=== PATIENT | male | born 1965 | race Caucasian/White ===

== ENCOUNTER 2021-04-08 13:12 | Day surgery (SDC) | payer BC ==
[2021-04-08] MEDS ORDERED: PROPOFOL 200 MG/20 ML VIAL IVP ONE (13:21)
[2021-04-08] MEDS ORDERED: PROPOFOL 500 MG/50 ML 500 MG/50 ML VIAL ONE (13:21)
[2021-04-08] MEDS ORDERED: ePHEDrine 50 MG/ML VIAL IVP ONE (13:29)
[2021-04-08] MEDS ORDERED: LACTATED RINGERS 1,000 ML IV ONE ×2 (13:35→14:34)
--- NOTE | 2021-04-08 13:41 | ANESTHESIA ---
Pre-Anesthesia VS, & Labs - Diagnosis screening - Procedure colonoscopy Vital Signs: Temp Pulse Resp BP Pulse Ox 36.7 C 62 18 148/88 H 97 04/08/21 13:30 04/08/21 13:30 04/08/21 13:30 04/08/21 13:30 04/08/21 13:30 Height: 5 ft 7 in Weight (kg): 95.1 kg Body Mass Index: 32.8 BMI Classification: Obese - NPO >8 hours - Lab Results Lab results reviewed: Yes Anes History & Medical History - Anesthetic History Anesthesia Complications: reports: No previous complications Family history of Anesthesia Complications: Denies Family history of Malignant Hyperthermia: Denies - Medical History Cardiovascular: reports: Hypertension Pulmonary: reports: None Gastrointestinal: reports: None Urinary: reports: None Musculoskeletal: reports: None Endocrine/Autoimmune: reports: None Skin: reports: None Psychosocial: reports: Alcohol (social), Cannabis (occasional) Exam General: Alert, Oriented x3, Cooperative Dental: WNL Mouth Openin Fingerbreadth Neck Mobility: Normal Mallampati classification: II Thyromental Distance: 4-6 cm Respiratory: Lungs clear, Normal breath sounds, No respiratory distress Cardiovascular: Regular rate Neurological: Normal speech Mental/Cognitive Status: Alert/Oriented X3, Normal for patient Cognitive Status: Within normal limits Plan Anesthesia Type: Total IV Consent for Procedure(s) Verified and Reviewed: Yes Code Status: Attempt Resuscitation ASA classification: 2-Mild systemic disease Is this case an emergency?: No
[2021-04-08 14:55] VITALS: BP 116/86
--- NOTE | 2021-04-08 15:11 | ANESTHESIA POST OP EVALUATION ---
Anesthesia Post Eval - Post Anesthesia Eval Vitals: Last Vital Signs Temp 36.7 C 04/08/21 14:54 Pulse 74 04/08/21 14:54 Resp 19 04/08/21 14:54 BP 116/86 H 04/08/21 14:54 Pulse Ox 97 04/08/21 14:54 CV Function Including HR & BP: Stable Pain Control: Satisfactory Nausea & Vomiting: Negative Mental Status: Baseline Respiratory Status: Airway Patent Hydration Status: Satisfactory Anesthesia Complications: None
== END 2021-04-08 13:13 | disposition home or self-care (01) ==
LOC: SDS 13:12
PROVIDERS: ATTEND Surgery
PROC: 0DBL8ZX Excision of Transverse Colon, Via Natural or Artificial Opening Endoscopic, Diagnostic (ICD-10-PCS; principal; 2021-04-08 14:30)
DX: Z12.11 Encounter for screening for malignant neoplasm of colon (principal); D12.3 Benign neoplasm of transverse colon; K57.30 Diverticulosis of large intestine without perforation or abscess without bleeding; E66.9 Obesity, unspecified; Z68.34 Body mass index [BMI] 34.0-34.9, adult
CPT/HCPCS: 45380; J7120

== ENCOUNTER 2023-11-20 14:35 | Outpatient (CLI) | payer BC ==
--- NOTE | 2023-11-20 17:37 | XRAY Report ---
PROCEDURE: Knee 3V RT INDICATIONS: KNEE JOINT INSTABILITY, PAIN IN RIGHT KNEE TECHNIQUE: 3 views of the knee(s) were acquired. COMPARISON: None. FINDINGS: Bones: No fractures or dislocations. No patellar subluxation. Mild tricompartmental osteoarthritis is seen with joint space narrowing and subchondral sclerosis. No suspicious bony lesions. Soft tissues: Small knee joint effusion. No suspicious soft tissue calcifications or masses. IMPRESSION: No acute bony abnormality. Mild tricompartmental osteoarthritis and small joint effusion. Reviewed by: Renato Nunn MD on 11/20/2023 5:35 PM PDT Approved by: Renato Nunn MD on 11/20/2023 5:35 PM PDT Station ID: [id number]
== END 2023-11-20 14:36 | disposition home or self-care (01) ==
LOC: DI 14:35
PROVIDERS: ATTEND Registered Nurse
DX: M25.361 Other instability, right knee (principal); M25.561 Pain in right knee